=== PATIENT | male | born 2000 | race Caucasian/White ===

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

== ENCOUNTER 2021-03-14 10:22 | Outpatient (CLI) | payer OTHER, SELFPAY ==
--- NOTE | ~2021-03-14 | XR_ITS ---
EXAMINATION: XR knee LT 3V DATE: 03/14/2021 10:42 INDICATION: Left knee pain TECHNIQUE: Anteroposterior, oblique and crosstable lateral views of the left knee were obtained COMPARISON: None. FINDINGS: Alignment is normal. No fracture. Joint spaces appear normal on nonweightbearing imaging. No joint e ffusion/layering lipohemarthrosis. Soft tissues are unremarkable. IMPRESSION: 1. Negative left knee radiographs. Reviewed, dictated and finalized at location A.
== END 2021-03-14 10:23 | disposition home or self-care (01) ==
PROVIDERS: PCP Family Medicine; Visit Provider Family Medicine
DX: M25.562 Pain in left knee (principal)
CPT/HCPCS: 73562

== ENCOUNTER 2021-09-02 21:24 | Emergency (ER) | payer OTHER, SELFPAY ==
--- NOTE | 2021-09-02 22:00 | PC.NURSE ---
Pt arrives to ER, c/o blood from rectum earlier today. skin pwd. resps even. no s/s of distress.
[2021-09-02 22:16] VITALS: BP 129/76; PULSE 78; RESP 20; TEMP 36.2; O2SAT 100
[2021-09-02 22:49] VITALS: BP 116/86; PULSE 75; RESP 18; TEMP 36.4; O2SAT 98
--- NOTE | 2021-09-02 23:00 | ED.GIBLEED ---
HPI - GI Bleed General Chief complaint: GI Bleed Stated complaint: rectal bleeding Time Seen by Provider: 09/02/21 22:50 Source: RN notes reviewed History of Present Illness HPI Narrative: Patient presents emergency department from home for rectal bleeding. Patient states has been having intermittent rectal bleeding for the past 6 months. He states that this evening past approximately jelly sized blood clot came to the ER for further evaluation. He states the pain can happen when he is having a bowel movement but other times can occur randomly he denies any fevers or chills chest pain or shortness of breath abdominal pain or diarrhea Related Data Allergies Allergy/AdvReac Type Severity Reaction Status Date / Time No Known Allergies Allergy Verified 09/02/21 22:58 Review of Systems Review of Systems: Gen.: Denies fevers or chills Respiratory: Denies shortness of breath CV: Denies chest pain GI: Denies abdominal pain nausea, emesis or diarrhea or rectal bleeding Musculoskeletal: Denies back pain or muscle pain Neuro: Denies numbness, tingling, weakness or focal weakness Skin: Denies rash Except as documented, all other systems reviewed and negative [facility] Past Medical History Medical History (Updated 09/02/21 @ 23:39 by Dylan Wolf DO) Patient denies significant medical history Surgical History Surgical History History of tonsillectomy Social History Social History Smoking status: Never smoker Gender identity (if verbalized by the patient): Male Exam Narrative: APPEARANCE: No acute distress, nontoxic, resting in bed EYES: EOMI HEENT: Normocephalic, atraumatic, OMM RESPIRATORY: No respiratory distress Clear to auscultation bilaterally with no rhonchi wheezing or rales. CARDIOVASCULAR: Regular rate and rhythm without murmurs rubs or gallops. ABDOMINAL: Soft, nontender, nondistended, no rebound or guarding : No penile lesions no scrotal swelling or erythema no rashes seen over the scrotum or penis Rectal: Red erythematous irritated skin over the right inner buttocks with excoriation that extends in the perineum but not into the scrotum no active bleeding no external hemorrhoids or fissures seen, soft brown stool present is Hemoccult negative MUSCULOSKELETAl: Moves all extremities. No clubbing, cyanosis or edema. NEURO: Awake and alert. Following commands, speech normal, no focal deficits SKIN:: Warm, dry. No rashes lesions or abrasions PSYCHIATRIC: Normal affect/mood, Course Course Emergency Course: Discussed with patient results of workup and diagnosis. Discussed need for follow-up with primary care, proper use of medication, and reasons to return to the emergency department. Patient understands and agrees to current treatment plan Vital Signs Vital signs: Vital Signs Temperature 97.1 F L 09/02/21 22:16 Pulse Rate 78 09/02/21 22:16 Respiratory Rate 20 09/02/21 22:16 Blood Pressure 129/76 09/02/21 22:16 Pulse Oximetry 100 09/02/21 22:16 Temperature 97.6 F 09/02/21 22:49 Pulse Rate 75 09/02/21 22:49 Respiratory Rate 18 09/02/21 22:49 Blood Pressure 116/86 09/02/21 22:49 Pulse Oximetry 98 09/02/21 22:49 MDM - GI Bleed MDM Narrative Medical decision making narrative: Patient presents rectal bleeding no active bleeding and ED evaluation no hemorrhoids rectal exam has heme-negative stool. The patient does have some excoriation on his buttocks that appears to be secondary to contact irritation no open wounds or ulcerations at this time will treat with barrier cream with follow-up with GI as outpatient Lab Data Result diagrams: 09/02/21 23:07 09/02/21 23:07 Labs: Lab Results 09/02/21 09/02/21 09/02/21 Range/Units 23:07 23:07 23:07 WBC 7.4 (4.5-10.0) K/mm3 RBC 5.27 (4.6-6.20) M/mm3 Hgb 15.9 (14.0-18.0) g/dL
[2021-09-02 23:17] LABS: Basophils Percent Auto 0.4 % (0.2-1.2); Eosinophils Absolute Auto 0.2 K/mm3 (0-0.3); Eosinophils Percent Auto 2.7 % (0-4.4); Hematocrit 45.2 % (42.0-52.0); Hemoglobin 15.9 g/dL (14.0-18.0); Immature Granulocyte Absolute 0.02 K/mm3 (0.00-0.031); Immature Granulocyte Percent A 0.3 % (0-0.5); Lymphocytes Absolute Auto 2.45 K/mm3 (0.9-3.2); Lymphocytes Percent Auto 33.3 % (18.3-44.2); Mean Corpuscular HGB Conc 35.2 g/dl (32-36); Mean Corpuscular Hemoglobin 30.2 pg (26-34); Mean Corpuscular Volume 85.8 fl (80-100); Mean Platelet Volume 10.1 fl (7.4-10.4); Monocytes Absolute Auto 0.7 K/mm3 (0.1-0.6); Monocytes Percent Auto 9.8 % (2.6-8.5); Neutrophils Absolute Auto 3.9 K/mm3 (1.3-6.7); Neutrophils Percent Auto 53.5 % (45.5-73.1); Platelet Count Result 230 k/mm3 (150-375); Red Blood Count 5.27 M/mm3 (4.6-6.20); Red Cell Distribution Width 12.3 % (11.5-14.5); White Blood Count 7.4 K/mm3 (4.5-10.0)
[2021-09-02 23:30] LABS: Anion Gap 10 mmol/L (8-16); Blood Urea Nitrogen 16 mg/dL (9-20); Calcium 9.3 mg/dL (8.4-10.2); Carbon Dioxide 25 mmol/L (22-30); Chloride 105 mmol/L (98-107); Estimated CRCL calculation 160 ml/min; Estimated Glomerular Filt Rate > 60; Glucose 95 mg/dL (65-110); Potassium 3.8 mmol/L (3.4-5.0); Sodium 140 mmol/L (137-145)
== END 2021-09-03 00:07 | disposition home or self-care (01) ==
PROVIDERS: Emergency Provider Emergency Medicine; PCP Family Medicine
DX: K62.5 Hemorrhage of anus and rectum (principal)
CPT/HCPCS: 36415; 80048; 85025; 85610; 85730; 99283; A9270

== ENCOUNTER 2021-09-14 08:54 | Outpatient (CLI) | payer OTHER, SELFPAY ==
--- NOTE | 2021-09-14 | EST_ITS ---
Patient Info Name: Gaeb Ruiz Age: 21 years : 2000 Gender: Male Ht: 72 in Wt: 240 lbs BSA: 2.38 m2 HR: 61 bpm BP: 116 / 68 mmHg Heart Rhythm: Sinus Rhythm Exam Date: 09/14/2021 9:24 AM Exam Location: [facility] Stress Patient Status: Outpatient Admit Date: 09/14/2021 Staff Ordering Physician: Garrett Long MD Attending Provider: Garrett Long MD Exercise Technologist: Milena Lomax CT Exercise Physician: Elvin Gutiérrez DO Exam Type: CA stress test treadmill Study Info Indications R94.31 - Abnormal electrocardiogram ECG EKG R07.9 - Chest pain, unspecified An exercise stress test was performed. Summary 1. 1. Negative [facility] exercise stress test for ischemic ST changes by ECG criteria. 2. 2. Good functional capacity, achieving 12 METs of workload. 3. 3. Appropriate HR response to exercise. 4. 4. Appropriate HR recovery at 1 minute post exercise. 5. 5. No imaging with stress testing. 6. 6. Patient informed of the above results. Protocol: [facility] Stress ECG Details Stage: REST Duration (min): 1 min : 22 sec Speed (mph): 0.0 Grade (%): 0 HR (bpm): 61 SBP (mmHg): 116 DBP (mmHg): 68 METS: --- Stage: REST Duration (min): 7 min : 44 sec Speed (mph): 0.0 Grade (%): 0 HR (bpm): 89 SBP (mmHg): 116 DBP (mmHg): 68 METS: --- Stage: STAGE 1 Duration (min): 1 min : 0 sec Speed (mph): 1.7 Grade (%): 10 HR (bpm): 94 SBP (mmHg): 116 DBP (mmHg): 68 METS: --- Stage: STAGE 1 Duration (min): 2 min : 0 sec Speed (mph): 1.7 Grade (%): 10 HR (bpm): 99 SBP (mmHg): 116 DBP (mmHg): 68 METS: --- Stage: STAGE 1 Duration (min): 3 min : 0 sec Speed (mph): 1.7 Grade (%): 10 HR (bpm): 95 SBP (mmHg): 130 DBP (mmHg): 51 METS: --- Stage: STAGE 2 Duration (min): 1 min : 0 sec Speed (mph): 2.5 Grade (%): 12 HR (bpm): 109 SBP (mmHg): 130 DBP (mmHg): 51 METS: --- Stage: STAGE 2 Duration (min): 2 min : 0 sec Speed (mph): 2.5 Grade (%): 12 HR (bpm): 101 SBP (mmHg): 144 DBP (mmHg): 58 METS: --- Stage: STAGE 2 Duration (min): 3 min : 0 sec Speed (mph): 2.5 Grade (%): 12 HR (bpm): 109 SBP (mmHg): 144 DBP (mmHg): 58 METS: --- Stage: STAGE 3 Duration (min): 1 min : 0 sec Speed (mph): 3.4 Grade (%): 14 HR (bpm): 124 SBP (mmHg): 147 DBP (mmHg): 60 METS: --- Stage: STAGE 3 Duration (min): 2 min : 0 sec Speed (mph): 3.4 Grade (%): 14 HR (bpm): 140 SBP (mmHg): 147 DBP (mmHg): 60 METS: --- Stage: STAGE 3 Duration (min): 3 min : 0 sec Speed (mph): 3.4 Grade (%): 14 HR (bpm): 145 SBP (mmHg): 171 DBP (mmHg): 58 METS: --- Stage: STAGE 4 Duration (min): 1 min : 0 sec Speed (mph): 4.2 Grade (%): 16 HR (bpm): 159 SBP (mmHg): 171 DBP (mmHg):
== END 2021-09-14 08:55 | disposition home or self-care (01) ==
PROVIDERS: PCP Family Medicine; Visit Provider Family Medicine
DX: R94.31 Abnormal electrocardiogram [ECG] [EKG] (principal)
CPT/HCPCS: 93017

== ENCOUNTER 2021-10-14 15:40 | Outpatient (CLI) | payer OTHER, SELFPAY ==
[2021-10-14 16:21] LABS: SARS-CoV-2 Ag Negative (Negative)
[2021-10-14 16:27] LABS: Influenza Control Valid (Valid)
== END 2021-10-14 15:41 | disposition home or self-care (01) ==
LOC: CHSLAB 15:42
PROVIDERS: PCP Family Medicine; Visit Provider Family Medicine
DX: Z20.822 Contact with and (suspected) exposure to COVID-19 (principal)
CPT/HCPCS: 87081; 87426; 87804; 87880; C9803

== ENCOUNTER 2021-11-01 17:03 | Emergency (ER) | payer OTHER, SELFPAY ==
[2021-11-01 17:23] VITALS: BP 131/79; PULSE 73; RESP 14; TEMP 36.4; O2SAT 100
[2021-11-01 18:44] LABS: Basophils Percent Auto 0.5 % (0.2-1.2); Eosinophils Absolute Auto 0.2 K/mm3 (0-0.3); Eosinophils Percent Auto 1.9 % (0-4.4); Hematocrit 47.4 % (42.0-52.0); Hemoglobin 16.1 g/dL (14.0-18.0); Immature Granulocyte Absolute 0.03 K/mm3 (0.00-0.031); Immature Granulocyte Percent A 0.4 % (0-0.5); Lymphocytes Absolute Auto 2.27 K/mm3 (0.9-3.2); Lymphocytes Percent Auto 28.7 % (18.3-44.2); Mean Corpuscular Hemoglobin 29.9 pg (26-34); Mean Corpuscular Volume 88.1 fl (80-100); Mean Platelet Volume 9.8 fl (7.4-10.4); Monocytes Absolute Auto 0.7 K/mm3 (0.1-0.6); Monocytes Percent Auto 9.4 % (2.6-8.5); Neutrophils Absolute Auto 4.7 K/mm3 (1.3-6.7); Neutrophils Percent Auto 59.1 % (45.5-73.1); Platelet Count Result 216 k/mm3 (150-375); Red Blood Count 5.38 M/mm3 (4.6-6.20); Red Cell Distribution Width 12.2 % (11.5-14.5); White Blood Count 7.9 K/mm3 (4.5-10.0)
[2021-11-01 19:24] VITALS: BP 122/71; PULSE 63; RESP 18; O2SAT 100
--- NOTE | 2021-11-01 19:26 | ED.GENADULT ---
HPI - General Adult General Chief complaint: GI Bleed Stated complaint: Blood in rectum Time Seen by Provider: 11/01/21 17:50 Source: RN notes reviewed History of Present Illness HPI narrative: Patient presents emergency department from home for rectal bleeding. Patient states that this afternoon he had an episode where he wiped with blood when he wiped ceases a second episode he is here since he was seen here in August 2021 for the same complaints. He states that after his initial visit he did use the cream that he been prescribed with improvement of his symptoms related return he denies any fevers or chills abdominal pain nausea vomiting diarrhea or any other symptoms states he has not seen GI since his last visit to the ER but was seen by his PCP Related Data Allergies Allergy/AdvReac Type Severity Reaction Status Date / Time No Known Allergies Allergy Verified 09/02/21 22:58 Review of Systems Review of Systems: Gen.: Denies fevers or chills ENT: Denies congestion Respiratory: Denies shortness of breath or cough CV: Denies chest pain or palpitations GI: Denies abdominal pain nausea, emesis or diarrhea reports rectal bleeding Musculoskeletal: Denies back pain or muscle pain Neuro: Denies numbness, tingling, weakness or focal weakness Skin: Denies rash Except as documented, all other systems reviewed and negative [facility] Past Medical History Medical History Patient denies significant medical history Surgical History Surgical History History of tonsillectomy Social History Social History Smoking status: Never smoker Gender identity (if verbalized by the patient): Male Exam Narrative: APPEARANCE: No acute distress, nontoxic, resting in bed EYES: EOMI HEENT: Normocephalic, atraumatic, OMM RESPIRATORY: No respiratory distress Clear to auscultation bilaterally with no rhonchi wheezing or rales. CARDIOVASCULAR: Regular rate and rhythm without murmurs rubs or gallops. ABDOMINAL: Soft, nontender, nondistended, no rebound or guarding Rectal: No hemorrhoids or fissures small amount of soft brown stool in the rectal vault that is Hemoccult negative, the right inner butt cheek is erythematous and excoriated does not extend to the perineum or scrotum MUSCULOSKELETAl: Moves all extremities. No clubbing, cyanosis or edema. NEURO: Awake and alert. Following commands, speech normal, no focal deficits SKIN:: Warm, dry. No rashes lesions or abrasions PSYCHIATRIC: Normal affect/mood, Course Course Emergency Course: Reviewed old records. Patient seen by myself for similar have been given lanolin cream at that time with improvement suspect secondary fungal infection will prescribe antifungals Discussed with patient results of workup and diagnosis. Discussed need for follow-up with primary care, proper use of medication, and reasons to return to the emergency department. Patient understands and agrees to current treatment plan Vital Signs Vital signs: Vital Signs Temperature 97.6 F 11/01/21 17:23 Pulse Rate 73 11/01/21 17:23 Respiratory Rate 14 11/01/21 17:23 Blood Pressure 131/79 11/01/21 17:23 Pulse Oximetry 100 11/01/21 17:23 Temperature 97.6 F 11/01/21 17:23 Pulse Rate 63 11/01/21 19:24 Respiratory Rate 18 11/01/21 19:24 Blood Pressure 122/71 11/01/21 19:24 Pulse Oximetry 100 11/01/21 19:24 Medical Decision Making Vital Signs Vital Signs: Vital Signs Temperature 97.6 F 11/01/21 17:23 Pulse Rate 73 11/01/21 17:23 Respiratory Rate 14 11/01/21 17:23 Blood Pressure 131/79 11/01/21 17:23 Pulse Oximetry 100 11/01/21 17:23 Temperature 97.6 F 11/01/21 17:23 Pulse Rate 63 11/01/21 19:24 Respiratory Rate 18 11/01/21 19:24 Blood Pressure 122/71 11/01/21 19:24 Pulse Oximetry 100 11/01/21 19:24
== END 2021-11-01 19:41 | disposition home or self-care (01) ==
PROVIDERS: Emergency Provider Emergency Medicine; PCP Family Medicine
DX: K62.5 Hemorrhage of anus and rectum (principal)
CPT/HCPCS: 36415; 85025; 99283

== ENCOUNTER 2022-01-11 00:12 | Day surgery (SDC) | payer OTHER, SELFPAY ==
[2021-12-27 14:57] VITALS: BMI 33.8
--- NOTE | 2022-01-11 09:11 | WPDANESEPPF ---
Anes - Initial Pre Proc Eval Procedure: Operation Date: 01/11/22 11:30 Proposed Procedures p Colonoscopy - Kamar Schaffer MD Date/Time: 01/11/22 09:11 Surgeon: Kamar Schaffer MD Pre Op Diagnosis: Rectal bleeding Patient Data Age: 21 Gender: M Height: 1.8 m Weight: 110 kg Allergies Allergy/AdvReac Type Severity Reaction Status Date / Time No Known Allergies Allergy Verified 01/11/22 10:03 Home Medications Medication Instructions Recorded Confirmed Type melatonin 10 mg capsule 10 mg PO QHS 11/21/21 01/11/22 History Patient hx anesthesia problems: none Family hx anesthesia problems: none Results Review: All pre-operative results and documents have been reviewed as part of the pre-operative evaluation. [facility] Past Medical History Medical History (Updated 01/11/22 @ 09:12 by Angel Luis London MD) Obesity Patient denies significant medical history Surgical History Surgical History History of tonsillectomy Social History Social History (Updated 11/21/21 @ 12:56 by Vicki Brown) Smoking status: Never smoker Substance use: never Substance use type: does not use Living arrangements: with family Gender identity (if verbalized by the patient): Male Spiritual care concerns: No Anes - Eval Final PreProcedure Day of Procedure 01/11/22 09:11 Patient weight: obese Heart: regular rate and rhythm Lungs: clear to auscultation and normal air movement Airway: Mallampati scale class II Neurological: alert and oriented Last oral intake: >/= 8 hours ASA classification: II Emergent: no Anesthetic plan: proceed Anesthesia type and monitoring: general GIVS Results Review: All pre-operative results and documents have been reviewed as part of the pre-operative evaluation. Informed Consent: The patient's anesthetic plan and its attendant risks and benefits were discussed with the patient/family/POA. Questions were solicited and answers provided to the satisfaction of the patient/family/POA.
[2022-01-11 10:04] VITALS: BP 130/81; PULSE 70; RESP 16; TEMP 36.3; O2SAT 98; BMI 32.8
[2022-01-11] MEDS: LACTATED RINGERS 1,000 ML 150 ML IV CONT (10:05)
--- NOTE | 2022-01-11 11:07 | PM.HPGS ---
History of Present Illness History of Present Illness Consent: Risks, benefits, and alternatives have been discussed and questions answered. Patient agrees to proceed with procedure. Chief complaint: Rectal bleeding Narrative: Gabe Ruiz is a 21 year old male with intermittent rectal bleeding, never had colonoscopy Review of Systems Constitutional: Constitutional: Denies headache(s) and Denies weakness Eyes: Eyes: Denies blurry vision ENT: Reports Normal hearing present, Denies headache(s) and Denies neck pain Cardiovascular: Cardiovascular: Denies chest pain and Denies dyspnea Respiratory: Respiratory: Denies dyspnea Gastrointestinal: Gastrointestinal: Reports no additional gastrointestinal complaints Genitourinary: Genitourinary: Denies dysuria Musculoskeletal: Musculoskeletal: Denies neck pain Integumentary/Breasts: Skin/Breast: Denies dry skin Neurologic: Reports Normal hearing present, Denies headache(s) and Denies weakness Psychiatric: Psychiatric: Denies anxiety Endocrine: Endocrine: Denies change in body appearance Hematologic/Lymphatic: Hematologic/Lymphatic: Denies easy bleeding Allergic/Immunologic: Allergic/Immunologic: Denies urticaria PMFSH Past Medical History Medical History (Updated 01/11/22 @ 11:08 by Kamar Schaffer MD) Hematochezia Obesity Patient denies significant medical history Surgical History Surgical History History of tonsillectomy Social History Social History (Updated 11/21/21 @ 12:56 by Vicki Brown) Smoking status: Never smoker Substance use: never Substance use type: does not use Living arrangements: with family Gender identity (if verbalized by the patient): Male Spiritual care concerns: No Meds Home Medications and Allergies Home Medications Medication Instructions Recorded Confirmed Type melatonin 10 mg capsule 10 mg PO QHS 11/21/21 01/11/22 History Allergies Allergy/AdvReac Type Severity Reaction Status Date / Time No Known Allergies Allergy Verified 01/11/22 10:03 Vital Signs Vital Signs - 24 hr 01/11/22 10:04 Temperature 97.3 F L Pulse Rate 70 Respiratory Rate 16 Blood Pressure 130/81 Pulse Oximetry 98 Exam Const: General: comfortable and no acute distress HENMT: General nose exam: Normal nares present Eyes: General: appearance normal, both eyes and all related structures Neck: Neck: no JVD Resp: Auscultation: clear to auscultation bilaterally Cardio: Rate: regular rate Rhythm: regular rhythm GI: Inspection: non-distended GI Palp: Yes Soft to palpation Skin: General skin exam: normal color Neuro: General: gait normal Speech: normal speech Extrem: General: normal to inspection Psych: Mental Status: mental status grossly normal Assessment and Plan Assessment and plan (1) Hematochezia: Code(s): K92.1 - Melena Status: Acute Assessment and Plan: probably perianal but will assess with colonoscopy
[2022-01-11 11:24] VITALS: BP 103/58; PULSE 79; RESP 22; O2SAT 98
[2022-01-11 11:34] VITALS: BP 105/70; PULSE 64; RESP 20; O2SAT 98
[2022-01-11 11:44] VITALS: BP 112/70; PULSE 66; RESP 26; O2SAT 99
== END 2022-01-11 12:16 | disposition home or self-care (01) ==
PROVIDERS: Visit Provider Internal Medicine Gastroenterology
PROC: 0DJD8ZZ Inspection of Lower Intestinal Tract, Via Natural or Artificial Opening Endoscopic (ICD-10-PCS; CPT 45378; principal; 2022-01-11 11:30)
DX: K92.1 Melena (principal); K64.8 Other hemorrhoids
CPT/HCPCS: 45378; J2704; J7120

== ENCOUNTER 2022-02-18 18:40 | Emergency (ER) | payer OTHER, SELFPAY ==
--- NOTE | ~2022-02-18 | XR_ITS ---
EXAMINATION: XR chest 2V 02/18/2022 19:19 INDICATION: Dyspnea PROCEDURE: 2 view chest COMPARISON: 01/15/2018 FINDINGS: The lungs are clear. The cardiomediastinal silhouette is within normal limits. There are no pleural effusions. There is no pneumothorax suspected. IMPRESSION: 1: NO ACUTE CARDIOPULMONARY DISEASE. Reviewed, dictated and finalized at location A.
[2022-02-18 18:41] VITALS: BP 139/82; PULSE 85; RESP 16; TEMP 36.5; O2SAT 100
--- NOTE | 2022-02-18 18:42 | ECG_ITS ---
Measurements Intervals [place] Rate: 76 P: 34 HI: 126 QRS: 64 QRSD: 102 T: 40 QT: 351 QTc: 395 Interpretive Statements SINUS RHYTHM NORMAL ECG Electronically Signed On 02-18-2022 21:06:21 CDT by Elvin Gutiérrez D.O.
[2022-02-18 19:07] VITALS: BP 123/84; PULSE 84; RESP 19; O2SAT 100
--- NOTE | 2022-02-18 19:15 | ED.GENADULT ---
HPI - General Adult General Chief complaint: Chest Pain Stated complaint: SOB/CP/DIZZY/WEAK/ RIGHT HAND SWELLING Time Seen by Provider: 02/18/22 19:01 History of Present Illness HPI narrative: 21-year-old male presenting to the emergency department for evaluation of increased generalized fatigue over the last 3 days. Patient did test positive for COVID on 01/26. Patient states he initially began feeling improved but over the last few days has had increased generalized fatigue and intermittent chest pain. Patient states 3 days ago he had a long bike ride and did get sunburn. Patient states since that time he has had increased fatigue. Patient was at an outside alliance party today, father reports that the patient denies drinking alcohol and that the patient did drink plenty of water today. Patient does report prior history of anxiety. Related Data Home Medications Medication Instructions Recorded Confirmed melatonin 10 mg capsule 10 mg PO QHS 11/21/21 01/11/22 Allergies Allergy/AdvReac Type Severity Reaction Status Date / Time No Known Allergies Allergy Verified 01/11/22 10:03 Review of Systems Review of Systems: CONSTITUTIONAL: Chills and generalized fatigue EYES: Denies visual changes, redness, or discharge. ENT: Denies rhinorrhea, congestion, sore throat, or otalgia. CARDIOVASCULAR: Intermittent chest wall pain RESPIRATORY: Cough and shortness of breath GASTROINTESTINAL: Denies abdominal pain, nausea, vomiting, or diarrhea. GENITOURINARY: Denies dysuria or hematuria. SKIN: Denies rash or itching. MUSCULOSKELETAL: Denies back pain, joint pain, or myalgia. NEUROLOGIC: Denies headache, numbness, or weakness. [facility] Past Medical History Medical History (Updated 02/18/22 @ 20:26 by Mark Flores MD) Hematochezia Obesity Patient denies significant medical history Surgical History Surgical History History of tonsillectomy Social History Social History (Updated 11/21/21 @ 12:56 by Vicki Brown) Smoking status: Never smoker Substance use: never Substance use type: does not use Gender identity (if verbalized by the patient): Male Spiritual care concerns: No Exam Narrative: APPEARANCE: Well appearing, no pain, no distress, well-nourished. HEAD: normocephalic, atraumatic. EYES: PERRLA/EOMI, conjunctivae clear. NOSE: Normal no drainage EARS:TMS clear with good light reflex. THROAT: Pharynx clear, no exudate. NECK: Supple. No adenopathy, no masses. RESPIRATORY: Airway patent, respirations nonlabored. Clear to auscultation bilaterally, no rales, rhonchi, wheezing. CARDIOVASCULAR: Regular rate and rhythm without murmurs rubs or gallops. Reproducible chest wall pain to palpation ABDOMINAL: Soft, nontender, nondistended, normal bowel sounds MUSCULOSKELETAL: Moves all extremities. Strength/ROM intact, No edema, No calf tenderness. NEURO: Alert. Cranial nerves II through XII intact. Grossly intact SKIN: Warm, dry. Normal Color Course Course Emergency Course: Patient reports he feels significantly improved since arrival. Patient and family were updated on the results of the work-up. Patient had a D-dimer within normal limits. Patient has no elevated leukocytosis. Patient is afebrile. Electrolytes are within normal limits. Chest x-ray showed no acute cardiopulmonary normality. Patient was encouraged to continue to have close follow-up with his primary care physician. Vital Signs Vital signs: Vital Signs Temperature 97.7 F 02/18/22 18:41 Pulse Rate 85 02/18/22 18:41 Respiratory Rate 16 02/18/22 18:41 Blood Pressure 139/82 02/18/22 18:41 Pulse Oximetry 100 02/18/22 18:41 Oxygen Delivery Room Air 02/18/22 18:41 Temperature 97.7 F 02/18/22 18:41 Pulse Rate 94 02/18/22 20:47 Respiratory Rate 18 02/18/22 20:47 Blood Pressure 136/87 02/18/22 20:47 Pulse Oximetry 98 02/18/22 20:47 Oxygen Delivery Room Air
[2022-02-18 19:17] LABS: Basophils Percent Auto 0.4 % (0.2-1.2); Eosinophils Absolute Auto 0.1 K/mm3 (0-0.3); Eosinophils Percent Auto 1.3 % (0-4.4); Hematocrit 44.2 % (42.0-52.0); Hemoglobin 14.9 g/dL (14.0-18.0); Immature Granulocyte Absolute 0.02 K/mm3 (0.00-0.031); Immature Granulocyte Percent A 0.3 % (0-0.5); Lymphocytes Absolute Auto 1.95 K/mm3 (0.9-3.2); Lymphocytes Percent Auto 27.5 % (18.3-44.2); Mean Corpuscular HGB Conc 33.7 g/dl (32-36); Mean Corpuscular Hemoglobin 29.5 pg (26-34); Mean Corpuscular Volume 87.5 fl (80-100); Mean Platelet Volume 10.4 fl (7.4-10.4); Monocytes Absolute Auto 0.7 K/mm3 (0.1-0.6); Neutrophils Absolute Auto 4.3 K/mm3 (1.3-6.7); Neutrophils Percent Auto 60.5 % (45.5-73.1); Platelet Count Result 235 k/mm3 (150-375); Red Blood Count 5.05 M/mm3 (4.6-6.20); Red Cell Distribution Width 12.4 % (11.5-14.5); White Blood Count 7.1 K/mm3 (4.5-10.0)
[2022-02-18 19:24] LABS: Alanine Aminotransferase 73 U/L (6-50); Albumin Level 4.2 g/dL (3.5-5.1); Alkaline Phosphatase 56 U/L (38-126); Anion Gap 8 mmol/L (8-16); Aspartate Amino Transferase 81 U/L (17-59); Bilirubin,Total 0.5 mg/dL (0.2-1.3); Blood Urea Nitrogen 13 mg/dL (9-20); Calcium 8.7 mg/dL (8.4-10.2); Carbon Dioxide 26 mmol/L (22-30); Chloride 106 mmol/L (98-107); Estimated CRCL calculation 161 ml/min; Estimated Glomerular Filt Rate > 60; Glucose 107 mg/dL (65-110); Lipase 83 U/L (23-300); Potassium 4.2 mmol/L (3.4-5.0); Sodium 140 mmol/L (137-145)
[2022-02-18 19:28] LABS: INR 1.1; Prothrombin Time 13.6 Seconds (11.1-14.7)
[2022-02-18 19:29] LABS: Partial Thromboplastin Time 26.7 SECONDS (22.3-36.8)
[2022-02-18 19:33] LABS: D Dimer 0.34 ug/mL (<0.48)
[2022-02-18 19:35] LABS: Troponin I < 0.012 ng/mL (0.000-0.034)
[2022-02-18 20:47] VITALS: BP 136/87; PULSE 94; RESP 18; O2SAT 98
== END 2022-02-18 20:48 | disposition home or self-care (01) ==
PROVIDERS: Emergency Provider Emergency Medicine
DX: U09.9 Post COVID-19 condition, unspecified (principal); R53.83 Other fatigue; E66.9 Obesity, unspecified; Z68.33 Body mass index [BMI] 33.0-33.9, adult
CPT/HCPCS: 36415; 71046; 80053; 83690; 84484; 85025; 85380; 85610; 85730; 93005; 99284

== ENCOUNTER 2024-04-09 17:21 | Emergency (ER) | payer OTHER, SELFPAY ==
--- NOTE | ~2024-04-09 | CT_ITS ---
CT brain wo con Ordering provider: Jennifer Slade PA-C History: 23 years Male with . head injury . Comparison: October 03, 2018 Technique: CT of the head without contrast. Radiation reduction technique utilized. DLP is 605.33 mGy-cm. FINDINGS: BRAIN PARENCHYMA AND CSF SPACES: No midline shift, mass effect or hemorrhage. The brain parenchyma a nd CSF spaces are otherwise normal. VISUALIZED PARANASAL SINUSES: Well aerated. MASTOIDS: Well aerated. BONES: The bones appear intact. SOFT TISSUES: Visualized nasopharynx is normal. Superficial soft tissues are normal. IMPRESSION: No acute intracranial findings. Reviewed, dictated and finalized at location A.
[2024-04-09 17:25] VITALS: BP 124/70; PULSE 64; RESP 16; TEMP 36.7; O2SAT 99
--- NOTE | 2024-04-09 17:40 | ECG_ITS ---
Test Date: 2024-04-09 17:48:30 Measurements Intervals [place] Rate: 59 P: 38 WV: 147 QRS: 56 QRSD: 109 T: 23 QT: 399 QTc: 395 Interpretive Statements SINUS BRADYCARDIA WITH SINUS ARRHYTHMIA BORDERLINE ECG No previous ECG available for comparison Electronically Signed On 04-09-2024 18:16:03 CDT by Elvin Gutiérrez D.O.
--- NOTE | 2024-04-09 17:41 | ED.HEATRA ---
HPI - Head Injury General Chief complaint: Head Injury Stated complaint: head injury Time Seen by Provider: 04/09/24 17:30 History of Present Illness HPI Narrative: 23-year-old male presents to the emergency department for head injury. Patient states when he woke up this morning got up out of his bed, he felt a head hicks and ran into the dry wall in his room. States he blacked out for a few seconds but never fell to the ground. States since he came to he has been slow. He denies neck pain, back pain, other injuries acquired. denies chest pain or shortness of breath. He does state that he feels dehydrated has been trying to drink plenty of fluids today. Denies nausea or vomiting. Related Data Home Medications Medication Instructions Recorded Confirmed melatonin 10 mg capsule 10 mg PO QHS 11/21/21 01/11/22 Allergies Allergy/AdvReac Type Severity Reaction Status Date / Time No Known Allergies Allergy Verified 01/11/22 10:03 Review of Systems Review of Systems: All systems reviewed & are unremarkable except as noted in HPI and below PMFSH Past Medical History Medical History Hematochezia Obesity Patient denies significant medical history Surgical History Surgical History History of tonsillectomy Social History Social History Smoking status: Never smoker Substance use: never Substance use type: does not use Living arrangements: with family Gender identity (if verbalized by the patient): Male Spiritual care concerns: No Exam Narrative: GENERAL: Well-appearing, well-nourished, and in no acute distress. HEAD: Normocephalic, atraumatic. EYES: PERRLA and EOMI. ENT: Nares clear, no rhinorrhea or epistaxis. Mucous membranes moist.Bilateral TMs are barajas and nonbulging normal canals NECK: Supple. no midline cervical spinous tenderness, step-offs or deformities CHEST: Clear to auscultation. No respiratory distress. HEART: Regular rate and rhythm. No murmur heard. Normal peripheral pulses. ABDOMEN: Soft, nontender, nondistended, normal active bowel sounds. EXTREMITIES: Normal range of motion. No edema. SKIN: Warm, dry, no rash. NEURO: No focal deficits. Alert and oriented x3 Course Vital Signs Vital signs: Vital Signs Temperature 98.1 F 04/09/24 17:25 Pulse Rate 64 04/09/24 17:25 Respiratory Rate 16 04/09/24 17:25 Blood Pressure 124/70 04/09/24 17:25 Pulse Oximetry 99 04/09/24 17:25 Temperature 98.1 F 04/09/24 17:25 Pulse Rate 64 04/09/24 17:25 Respiratory Rate 16 04/09/24 17:25 Blood Pressure 124/70 04/09/24 17:25 Pulse Oximetry 99 04/09/24 17:25 MDM - Head Injury MDM Narrative Medical decision making narrative: 23-year-old male presents to the emergency department for head injury after feeling a head hicks when he stood up out of bed. triage vitals stable. Patient is afebrile and nontoxic on exam. No evidence of trauma on exam. EKG shows sinus bradycardia with sinus arrhythmia with a rate of 59 ppm, normal MT interval, normal QRS duration, normal QTC, no ischemic changes. CBC and chemistries are unremarkable. CT brain shows no acute intracranial abnormality. Workup discussed with the patient. He received IV fluids and Tylenol with improvement. he is ambulatory in the ED without lightheadedness. Advised to follow up with his PCP and to get up slowly to avoid lightheadedness. Strict ED return precautions discussed. he is agreeable to plan verbalized understanding. Discharged in stable condition. Lab Data 04/09/24 17:57 04/09/24 17:57 Labs: Lab Results 04/09/24 Range/Units 17:57 WBC 6.7 (4.5-10.0) K/mm3 RBC 5.45 (4.6-6.20) M/mm3 Hgb 16.2 (14.0-18.0) g/dL Hct 46.5 (42.0-52.0) % MCV 85.3 (80-100) fl MCH
[2024-04-09 18:04] LABS: Basophils Percent Auto 0.4 % (0.2-1.2); Eosinophils Absolute Auto 0.1 K/mm3 (0-0.3); Eosinophils Percent Auto 1.9 % (0-4.4); Hematocrit 46.5 % (42.0-52.0); Hemoglobin 16.2 g/dL (14.0-18.0); Immature Granulocyte Absolute 0.02 K/mm3 (0.00-0.031); Immature Granulocyte Percent A 0.3 % (0-0.5); Lymphocytes Absolute Auto 2.02 K/mm3 (0.9-3.2); Mean Corpuscular HGB Conc 34.8 g/dl (32-36); Mean Corpuscular Hemoglobin 29.7 pg (26-34); Mean Corpuscular Volume 85.3 fl (80-100); Mean Platelet Volume 10.6 fl (7.4-10.4); Monocytes Absolute Auto 0.6 K/mm3 (0.1-0.6); Monocytes Percent Auto 9.4 % (2.6-8.5); Neutrophils Absolute Auto 3.9 K/mm3 (1.3-6.7); Platelet Count Result 219 k/mm3 (150-375); Red Blood Count 5.45 M/mm3 (4.6-6.20); Red Cell Distribution Width 12.4 % (11.5-14.5); White Blood Count 6.7 K/mm3 (4.5-10.0)
[2024-04-09 18:14] LABS: Anion Gap 10 mmol/L (4-12); Blood Urea Nitrogen 13 mg/dL (9-20); Calcium 8.9 mg/dL (8.4-10.2); Carbon Dioxide 26 mmol/L (22-30); Chloride 102 mmol/L (98-107); Estimated CRCL calculation 158 ml/min; Estimated Glomerular Filt Rate > 60; Glucose 104 mg/dL (65-110); Potassium 3.7 mmol/L (3.4-5.0); Sodium 138 mmol/L (137-145)
[2024-04-09] MEDS: SODIUM CHLORIDE 0.9% IV 1,000 ML 999 ML IV CONT (18:36)
[2024-04-09] MEDS: ACETAMINOPHEN 500 MG TABLET 1000 MG PO (18:36)
--- NOTE | 2024-04-28 09:18 | PC.NURSE ---
LATE ENTRY This note is being entered to document information to the patient's record. The following information was omitted on [04/09/24], by [Whit Soto]. NS stop time is 1929.
== END 2024-04-09 19:16 | disposition home or self-care (01) ==
PROVIDERS: Emergency Provider Physician Assistant; PCP Internal Medicine
DX: S06.9X1A Unspecified intracranial injury with loss of consciousness of 30 minutes or less, initial encounter (principal); E66.9 Obesity, unspecified; Z68.33 Body mass index [BMI] 33.0-33.9, adult; R00.1 Bradycardia, unspecified; W22.01XA Walked into wall, initial encounter
CPT/HCPCS: 36415; 70450; 80048; 85025; 93005; 96360; 99284; A9270; J7030

== ENCOUNTER 2025-06-11 14:34 | Emergency (ER) | payer OTHER, SELFPAY ==
--- OUTSIDE RECORDS SUMMARY | 2025-06-11 14:38 | XMS_ITS | Encounter Summary ---
Author Organization [facility] Address [address] [place] [address] Care Team Providers Care Youth Nutritional Monitor Name Role Phone Tania Carias MD Primary Care Provider [phone] Encounter Details Date Type Department Care Team (Latest Contact Info) Description 07/28/2024 Widgetboxt Message Enc [address] [place] [address] Tania Carias MD [address] [place] [address]Nueki Carias Social History Tobacco Use Types Packs/Day Years Used Date Smoking Tobacco: Never Smokeless Tobacco: Never Comments:Counseled by Dr. Merline lama. Alcohol Use Standard Drinks/Week Comments Never 0 (1 standard drink = 0.6 oz pur e alcohol) PHQ-2 Answer Date Recorded Patient Health Questionnaire-2 Score 0 05/06/2024 Sex and Gender Information Value Date Recorded Sex Assigned at Not on file Legal Sex Male 4:26 PM CDT Gender Identity Not on file Sexual Orientation Not on file documented as of this encounter Plan of Treatment Upcoming Encounters Date Type Department Care Team (Late st Contact Info) Description 06/15/2025 7:30 AM CDT Flu[facility] [address] [place] [address] Tania Carias MD [facility] [address] [address] 09/09/2025 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 [facility] - [place] [address] [address] [place] [address] [place] [address] [place] [address] documented as of this encounter Visit Diagnoses Not on filedocumented in this encounter Additional Health Concerns Assessment Noted Time PHQ-9 Depression Total Score: 9 05/06/20 24 9:23 AM CDT documented as of this encounter Care Teams Youth Nutritional Monitor Relationship Specialty Start Date End Date Tania Carias MD [address] [place] [address] PCP - General INTERNAL MEDICINE 04/09/23 documented as of this encounter
--- OUTSIDE RECORDS SUMMARY | 2025-06-11 14:38 | XMS_ITS | Encounter Summary ---
Author Organization [facility] Address [address] [place] [address] Care Team Providers Care Chiseler Head Name Role Phone Tania Carias MD Primary Care Provider [phone] Encounter Details Date Type Department Care Team (Latest Contact Info) Description 05/13/2025 Results Follow-Up [facility] - [place] [address] [address] [place], [place] [id number] Tania Carias MD [address] [place] [address] [place], [place] [id number] HEMOGLOBIN, GLYCOSYLATED, TSH W/REFLEX, LIPID PANEL, Additional followed-up results: 4 Social History Tobacco Use Types Packs/Day Years Used Date Smoking Tobacco: Never Smokeless Tobacco: Never Comments:Counseled by Dr. Merline lama. Alcohol Use Standard Drinks/Week Comments Never 0 (1 standard drink = 0.6 oz pur e alcohol) PHQ-2 Answer Date Recorded Patient Health Questionnaire-2 Score 3 05/13/2025 Sex and Gender Information Value Date Recorded Sex Assigned at Not on file Legal Sex Male 4:26 PM CDT Gender Identity Not on file Sexual Orientation Not on file documented as of this encounter Functional Status * Over the past 2 weeks, how often have you been bothered by any of the following problems? Question Answer Date of Assessment Author Status Little interest or pleasure in doing things More than half the days 05/13/2025 7:53 AM CDT Azalea Neves MA Active Feeling down, depressed, or hopeless Several days 05/13/2025 7:53 AM Azalea Smith MA Active Patient Health Questionnaire-2 Score 3 05/13/2025 7:53 AM Azalea Smith MA Active * Question Answer Date of Assessment Author Status Trouble falling or staying asleep, or sleeping too much More than half the days 05/13/2025 7:53 AM Azalea Smith MA Active Feeling tired or having little energy Not at all 05/13/2025 7:53 AM PEDROT Azalea Neves MA Active Poor appetite or overeating Nearly every day 05/13/2025 7:53 AM PEDROT Azalea Neves MA Active Feeling bad about yourself - or that you are a failure or have let yourself or your family down Not at all 05/13/2025 7:53 AM Azalea Smith MA Active Trouble concentrating on things, such as reading the newspaper or watching television More than half the days 05/13/2025 7:53 AM PEDROT Azalea Neves MA Active Moving or speaking so slowly that other people could have noticed? Or the opposite - being so fidgety or restless that you have been moving around a lot more than usual. More than half the days 05/13/2025 7:53 AM Azalea Smith MA Active Thoughts that you would be better off or hurting yourself in some way Not at all 05/13/2025 7:53 AM Azalea Smith MA Active Patient Health Questionnaire-9 Score 12 05/13/2025 7:53 AM Azalea Smith MA Active * If you checked off any problems on this questionnaire so far, Question Answer Date of Assessment Author Status How difficult have these problems made it for you to do your work, take care of things at home, or get along with other people? Somewhat difficult 05/13/2025 7:53 AM Azalea Smith MA Active * Over the last 2 weeks, how often have you been bothered by any of the following problems? Question Answer Date of Assessment Author Status Feeling nervous, anxious, or on edge 1 05/13/2025 7:54 AM Azalea Smith MA Act alhaji Not being able to stop or control worrying 2 05/13/2025 7:54 AM CDT Azalea Neves MA Ac tive Worrying too much about different things 0 05/13/2025 7:54 AM CDT Azalea Neves MA Ac tive Trouble relaxing 0 05/13/2025 7:54 AM CDT Azalea Freeman MA Active Being so restless that it is hard to sit still 3 05/13/2025 7:54 AM CDT Azalea Neves M A Active Becoming easily annoyed or irritable 0 05/13/2025 7:54 AM CDT Azalea Neves MA Act alhaji Feeling afraid as if something awful might happen 0 05/13/2025 7:54 AM CDT Azalea Neves MA Act alhaji JUSTIN-7 Total Score 6 05/13/2025 7:54 AM CDT Azalea Joya ms, MA Active documented as of this encounter Plan of Treatment Upcoming Encounters Date Type Department Care Team (Late st Contact Info) Description 06/15/2025 7:30 AM CDT [facility] - [address] [address] Tania Carias MD [address] [place] [address] 09/09/2025 4:20 PM CORPORATE HUMAN RESOURCES MANAGER Office Visit [facility] - [address] [address] Tania Carias MD [address] [place] [address] documented as of this encounter Visit Diagnoses Not on filedocumented in this encounter Additional Health Concerns Assessment Noted Time PHQ-9 Depression Total Score: 12 025 7:53 AM CDT documented as of this encounter Care Teams Chiseler Head Relationship Specialty Start Date End Date Tania Carias MD [address] [place] [id number] PCP - General INTERNAL MEDICINE 04/09/23 documented as of this encounter
--- OUTSIDE RECORDS SUMMARY | 2025-06-11 14:38 | XMS_ITS | Clinical Summary ---
Author Organization [facility] Address [address] [place] [address] Care Team Providers Care Balance Staff Inspector Name Role Phone Gabino Martinez MD Primary Care Provider Allergies No known active allergies Medications melatonin 10 mg tablet Active hydrocortisone (ANUSOL-HC) 2.5 % rectal creamIndication s:External hemorrhoid Insert into the rectum 4 (four) times a day as needed for hemorrhoids (rectal discomfort) Apply to affected areas 30 g 3 Active Active Problems Problem Noted Date Diagnosed Date Well adult exam 12/29/2021 Assessment & Plan (12/26/2022 1:13 PM CDT): A(n) yearly well adult visit has been performed today. Gabe Ruiz is up to date on screening tests. He is in need of None- no screening indicated at this time. He is not up to date on needed preventative vaccinations; He is in need of Meningococcal and Covid-19 (booster). We discussed healthy lifestyle habits, educational material has been given. Medications reviewed, changes documented as per the medical record and discussed with patient along with risks vs benefits. Return in 1 year Assessment & Plan (12/29/2021 9:04 AM CDT): A initial well visit to establish care has been performed today. Gabe Ruiz is up to date on screening tests. He is in need of None- no screening indicated at this time- these have been ordered. He is not up to date on needed preventative vaccinations; He is in need of Covid-19 (booster). These have been ordered/arranged unless otherwise indicated. I think it would be a good idea to proceed with plans for colonoscopy Will try to get old records from [facility], especially ER record Labs as ordered Spells of decreased attentiveness 08/12/2018 Immunizations Immunization Administration Dates Next Due DTaP 05/11/2006, 3,01/21/2002,2001, 2001 HPV, Quadrivalent 11/20/2014,04/06/2014,03/04/20 13 Hep A, 3 Dose 05/24/2017 Hep A, Pediatric 05/11/2016 Hep B, Adolescent or Pediatric 03/26/2002,2000,2001 HiB 12/19/2002,01/21/2002,2001 ,2001 IPV 05/11/2006,12/19/2002,2001 ,2001 Influenza, Trivalent, IM (MDV) 05/24/2017 Influenza, Unspecified 09/24/2021(Deferr ed: Patient Refused),09/24/2020(Deferred: Patient Refused) MMR 05/11/2006,2002 Meningococcal MCV4P (Menactra) 04/12/2018,2012 Pneumococcal Conjugate 7-Valent 06/29/2003,01/21,2001 Tdap 06/22/2020,06/18/2020,03/04/2013 Varicella 04/06/2014,2002 Surgical History Surgery Date Site/Laterality Comments DENTAL SURGERY 09/24/2019 - 09/23/2020 ORIF ELBOW FRACTURE 09/24/2003 - 09/23/2004 Medical History Medical History Date Comments Insomnia JUSTIN (generalized anxiety disorder) Asperger's syndrome Family History Medical History Relation Name Comments Anxiety disorder Father Depression Father Heart disease Father separation anxiety Father Relation Name Status Comments Brother Alive Father Alive Mother Alive Social History Tobacco Use Types Packs/Day Years Used Date Smoking Tobacco: Never Passive Smoke Exposure: Never Smokeless Tobacco: Never AUDIT-C Answer Date Recorded Q1: How often do you have a drink containing alc ohol? Never 12/26/2021 Average Number of Drinks Not on file 022 Q3: How often do you have si x or more drinks on one occasion? Never 12/26/2021 PHQ-2 Answer Date Recorded PHQ-2 Total Score (If total score is 3 or more points, staff should administer the PHQ-9) 2 12/26/2022 [facility] - Occupational Stress Questionnaire Answer Date Recorded Do you feel stress - tense, restless, nervous, or anxious, or unable to sleep at night because your mind is troubled all the time - these days? Only a little 12/26/2021 Personal Safety Answer Date Recorded Getting School Help Needed Not on file 12/01 Education Answer Date Recorded What is the highest level of school you have completed or the highest degree you have received? 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 on file Not on file Not on file Obstetrics History Last Filed Vital Signs Vital Sign Reading Time Taken Comments Blood Pressure 104/74 12/26/2022 12:51 PM CDT Pulse 88 12/26/2022 12:51 PM CDT Temperature 36.8 C (98.3 F) 12/26/2022 12:51 PM CDT Respiratory Rate 20 12/26/2022 12:51 PM CDT Oxygen Saturation 96% 12/26/2022 12:51 PM CDT Inhaled Oxygen Concentration - - Weight 104.8 kg (231 lb) 12/26/2022 12:51 PM CDT Height 180.3 cm (5' 11) 12/26/2022 12:51 PM CDT Body Mass Index 32.22 12/26/2022 12:51 PM CDT Plan of Treatment Health Maintenance Due Date Last Done Comments Hepatitis C Screening 2001 Meningococcal B Vaccine (1 o f 2 - Standard) 2017 Depression Screening 12/27/2023 12/26/2022, 12/27/19 22 Regular Well Visit/Exam 18-64 12/27/2023 12/26/2022, 12/26/2021 Covid-19 Vaccine (3 - 2023-2 5 season) 2024 03/07/2021, 02/14/2021 Influenza Vaccine (#1) 2025 05/24/2017 DTaP/Tdap/Td Vaccine (9 - Td or Tdap) 06/22/2030 06/22/2020, 06/18/2020, 03/04/2013, Additional history exists Hepatitis B Screening Completed 03/26/2002 , 2001, 2001 Pneumococcal vaccine <65 Completed 003, 01/21/2002, 2001 Varicella Vaccines Completed 04/06/2014, 2002 HPV Vaccines Completed 11/20/2014, 03/24, 03/04/2013 Insurance [employer] OPEN ACC[employer] Care Teams Balance Staff Inspector Relationship Specialty Start Date End Date Gabino Martinez MD [address] [place] [address] PCP - General Family Medicine 12/23/21
[2025-06-11 14:43] VITALS: BP 125/83; PULSE 82; RESP 16; TEMP 36.8; O2SAT 96
--- NOTE | 2025-06-11 14:49 | ED.SKABFB ---
HPI - Skin/Abscess/Foreign Bdy General Chief complaint: Skin/Abscess/Foreign Body <Alexa Chauhan APRN - Last Filed: 06/11/25 14:52> Stated complaint: Burn right wrist-possibley infected <Alexa Chauhan APRN - Last Filed: 06/11/25 14:52> Time Seen by Provider: 06/11/25 14:50 <Alexa Chauhan APRN - Last Filed: 06/11/25 14:52> Focused HPI: Patient is a 24-year-old male who presents to the ER with a burn to his right wrist. He reports he sustained a burn at work on Sunday, 3 days ago. Patient reports the site has developed multiple blisters, 1 of which has popped. He reports burn was caused by hot coffee. Patient denies any recent fevers, decreased range of motion, current pain to the site or purulent drainage. He does endorse intermittent tingling to his right hand. Patient denies any medical history relevant to this ER visit. GENERAL: Well-appearing, well-nourished, and in no acute distress. HEAD: Normocephalic, atraumatic. CHEST: Clear to auscultation. ?No respiratory distress. HEART: Regular rate and rhythm.? NEURO: ?Alert and oriented x3. Patient screened in triage and initial orders placed.? ?Additional care and disposition to be based upon?diagnostic testing and treatment. <Alexa Chauhan APRN - Last Filed: 06/11/25 14:52> Source: patient <Cody Kidd MD - Last Filed: 06/11/25 19:55> Mode of arrival: ambulatory <Cody Kidd MD - Last Filed: 06/11/25 19:55> Limitations: no limitations <Cody Kidd MD - Last Filed: 06/11/25 19:55> History of Present Illness HPI narrative: 24-year-old otherwise healthy here with a complains of blood to his right wrist sustained 2 days ago. Patient states that he was at work heart liquid spilled onto his forearm. He said he has been using [id number] creams and he is here for wound care check <Cody Kidd MD - Last Filed: 06/11/25 19:55> MD complaint: other (wrist) <Cody Kidd MD - Last Filed: 06/11/25 19:55> Onset (ago): day(s) (3) <Cody Kidd MD - Last Filed: 06/11/25 19:55> Location: RUE (Wrist) <Cody Kidd MD - Last Filed: 06/11/25 19:55> Severity: mild <Cody Kidd MD - Last Filed: 06/11/25 19:55> Pain Consistency: constant <Cody Kidd MD - Last Filed: 06/11/25 19:55> Relieving factors: none <Cody Kidd MD - Last Filed: 06/11/25 19:55> Exacerbating factors: none <Cody Kidd MD - Last Filed: 06/11/25 19:55> Context: none <Cody Kidd MD - Last Filed: 06/11/25 19:55> Associated symptoms: denies other symptoms <Cody Kidd MD - Last Filed: 06/11/25 19:55> Treatments prior to arrival: bandages <Cody Kidd MD - Last Filed: 06/11/25 19:55> Related Data Home medications: Home Medications ?Medication ?Instructions ?Recorded ?Confirmed ?Last Taken ?Type melatonin 10 mg capsule 10 mg PO QHS 11/21/21 01/11/22 01/10/22 History <Alexa Chauhan APRN - Last Filed: 06/11/25 14:52> Allergies/Adverse reactions: Allergies Allergy/AdvReac Type Severity Reaction Status Date / Time No Known Allergies Allergy Verified 06/11/25 14:45 <Alexa Chauhan APRN - Last Filed: 06/11/25 14:52> Review of Systems Review of Systems: All systems reviewed & are unremarkable except as noted in HPI and below <Cody Kidd MD - Last Filed: 06/11/25 19:55> Constitutional: Constitutional: Reports no additional constitutional complaints <Cody Kidd MD - Last Filed: 06/11/25 19:55> Eyes: Eyes: Reports no additional eye complaints <Cody Kidd MD - Last Filed: 06/11/25 19:55> ENT: Reports system reviewed and no additional complaints, except as documented <Cdoy Kidd MD - Last Filed: 06/11/25 19:55> Cardiovascular: Cardiovascular: Reports no additional cardiovascular complaints <Cody Kidd MD - Last Filed: 06/11/25 19:55> Respiratory: Respiratory: Reports no additional respiratory complaints <Cody Kidd MD - Last Filed: 06/11/25 19:55> Musculoskeletal: Musculoskeletal: Reports as per HPI <Cody Kidd MD - Last Filed: 06/11/25 19:55> Integumentary/Breasts: Skin/Breast: Reports as per HPI <Cody Kidd MD - Last Filed: 06/11/25 19:55> PMFSH Past Medical History Medical History: Medical History Hematochezia Obesity Patient denies significant medical history <Alexa Chauhan APRN - Last Filed: 06/11/25 14:52> Surgical History Surgical History: Surgical History History of tonsillectomy <Alexa Chauhan APRN - Last Filed: 06/11/25 14:52> Social History Social History: Social History Smoking status: Never smoker Substance use: never Substance use type: does not use Living arrangements: with family Gender identity (if verbalized by the patient): Male Spiritual care concerns: No <Alexa Chauhan APRN - Last Filed: 06/11/25 14:52> Exam Narrative: GENERAL: Well-appearing, well-nourished, and in no acute distress. HEAD: Normocephalic, atraumatic. EYES: PERRLA and EOMI. ENT: Nares clear, no rhinorrhea or epistaxis. Mucous membranes moist. NECK: Supple. CHEST: Clear to auscultation. No respiratory distress. HEART: Regular rate and rhythm. No murmur heard. Normal peripheral pulses. EXTREMITIES: Normal range of motion. No edema. A small area of second-degree burn on the right wrist with no sign of infection. SKIN: Warm, dry, no rash. NEURO: No focal deficits. Alert and oriented x3. PSYCH: Normal mood and affect. <Cody Kidd MD - Last Filed: 06/11/25 19:55> Course Course Emergency Course: Advised him to continue to use Neosporin to the area, can take Tylenol ibuprofen for pain. <Cody Kidd MD - Last Filed: 06/11/25 19:55> Vital Signs Vital signs: Vital Signs Temperature 36.8 C 06/11/25 14:43 Pulse Rate 82 06/11/25 14:43 Respiratory Rate 16 06/11/25 14:43 Blood Pressure 125/83 06/11/25 14:43 Pulse Oximetry 96 06/11/25 14:43 Temperature 36.8 C 06/11/25 14:43 Pulse Rate 82 06/11/25 14:43 Respiratory Rate 16 06/11/25 14:43 Blood Pressure 125/83 06/11/25 14:43 Pulse Oximetry 96 06/11/25 14:43 <Alexa Chauhan APRN - Last Filed: 06/11/25 14:52> Vital Signs Temperature 36.8 C 06/11/25 14:43 Pulse Rate 82 06/11/25 14:43 Respiratory Rate 16 06/11/25 14:43 Blood Pressure 125/83 06/11/25 14:43 Pulse Oximetry 96 06/11/25 14:43 Temperature 36.8 C 06/11/25 14:43 Pulse Rate 82 06/11/25 14:43 Respiratory Rate 16 06/11/25 14:43 Blood Pressure 125/83 06/11/25 14:43 Pulse Oximetry 96 06/11/25 14:43 <Cody Kidd MD - Last Filed: 06/11/25 19:55> Discharge Plan Discharge Clinical Impression: Second degree burn of right wrist Qualifiers: Encounter type: initial encounter Qualified Code(s): T23.271A - Burn of second degree of right wrist, initial encounter <Alexa Chauhan APRN - Last Filed: 06/11/25 14:52> Patient Disposition: Home <Alexa Chauhan APRN - Last Filed: 06/11/25 14:52> Condition: Stable <Alexa Chauhan APRN - Last Filed: 06/11/25 14:52> Instructions: Second-Degree Burn (ED) <Alexa Chauhan APRN - Last Filed: 06/11/25 14:52> Additional Instructions: apply Neosporin to the area , can take Tylenol or ibuprofen for pain <Alexa Chauhan APRN - Last Filed: 06/11/25 14:52> Patient Language: Malawian <Alexa Chauhan APRN - Last Filed: 06/11/25 14:52> Prescriptions: No Action melatonin 10 mg capsule 10 mg PO QHS <Alexa Chauhan APRN - Last Filed: 06/11/25 14:52> Follow-up/Referrals: Aretha,MD Tania [Primary Care Provider, Unknown] <Alexa Chauhan APRN - Last Filed: 06/11/25 14:52> Time of Disposition: 19:30 <Alexa Chauhan APRN - Last Filed: 06/11/25 14:52> 19:30 <Cody Kidd MD - Last Filed: 06/11/25 19:55>
[2025-06-11 19:54] VITALS: BP 119/75; PULSE 83; RESP 16; TEMP 36.8; O2SAT 95
== END 2025-06-11 20:19 | disposition home or self-care (01) ==
PROVIDERS: Emergency Provider Family Medicine; PCP Internal Medicine
DX: T23.271A Burn of second degree of right wrist, initial encounter (principal); T31.0 Burns involving less than 10% of body surface; E66.9 Obesity, unspecified; Z68.36 Body mass index [BMI] 36.0-36.9, adult; X10.0XXA Contact with hot drinks, initial encounter
CPT/HCPCS: 16020; 99283